=== PATIENT | female | born 1935 | race Caucasian/White ===

== ENCOUNTER 2021-08-01 07:14 | Inpatient (IN) ==
[2021-08-01 07:55] LABS: Basophils # 0.1 K/mcL (0.0-0.2); Basophils % 0.6 %; Eosinophils # 0.3 K/mcL (0.0-0.6); Hematocrit 42.1 % (35.3-44.9); Hemoglobin 13.1 g/dL (11.5-15.4); Immature Granulocytes % 0.3 % (0-4); Lymphocytes # 0.9 K/mcL (0.6-4.6); Lymphocytes % 9.9 %; Mean Corpuscular HGB Conc 31.1 g/dL (31.6-35.5); Mean Corpuscular Hemoglobin 27.5 pg (28.0-33.3); Mean Corpuscular Volume 88.3 fL (83.0-100.0); Monocytes # 1.1 K/mcL (0.0-1.3); Monocytes % 12.3 %; Neutrophils # 6.5 K/mcL (1.6-8.9); Platelet Count 198 K/mcL (140-400); Red Blood Count 4.77 M/mcL (3.82-4.97); Red Cell Distribution Width 14.7 % (11.5-14.5); Segmented Neutrophils % 73.9 %; White Blood Count 8.8 K/mcL (4.3-11.1)
[2021-08-01] MEDS ORDERED: carvediloL 25 MG TABLET PO SCH (08:00)
[2021-08-01 08:19] LABS: Alanine Aminotransferase 10 Units/L (7-52); Albumin 3.8 g/dL (3.5-5.7); Albumin/Globulin Ratio 1.4 (1.1-2.2); Alkaline Phosphatase 90 Units/L (34-104); Aspartate Amino Transferase 14 Units/L (13-39); BUN/Creatinine Ratio 19 (6-26); Bilirubin,Total 1.1 mg/dL (0.3-1.0); Blood Urea Nitrogen 14 mg/dL (8-23); Calcium 9.5 mg/dL (8.6-10.3); Carbon Dioxide 25 mEq/L (23-29); Chloride 104 mEq/L (98-107); Globulin 2.8 g/dL (2.4-3.5); Glucose 176 mg/dL (70-105); Osmolality,Calculated 287 (280-300); Potassium 4.3 mEq/L (3.5-5.1); Sodium 136 mEq/L (136-145); Total Protein 6.6 g/dL (6.4-8.9); Troponin I < 0.03 ng/mL (< 0.04); eGFR For African Americans > 60 (> 60); eGFR For Non-African Americans > 60 (> 60)
[2021-08-01 08:31] LABS: Influenza A PCR Negative (Negative); Influenza B PCR Negative (Negative); Resp. Syncytial Virus PCR Negative (Negative)
[2021-08-01] MEDS ORDERED: DilTIAZem CD (24hr) 120 MG CAP.ER.24H PO SCH (09:00)
[2021-08-01 09:45] LABS: SARS-CoV-2 by PCR (In House) Negative (Negative)
[2021-08-01] MEDS ORDERED: Furosemide 40 MG/4 ML VIAL IVP ONE (10:08)
[2021-08-01] MEDS ORDERED: Naloxone 0.4 MG/ML INJ IVP PRN (10:13)
[2021-08-01] MEDS ORDERED: *HR* OxyCODONE Immed Rel 5 MG TABLET PO PRN (10:23)
[2021-08-01] MEDS ORDERED: *HR* HYDROcodone/Acet 5/325 mg TABLET PO PRN (10:23)
[2021-08-01] MEDS ORDERED: Ondansetron 4 MG/2 ML VIAL IVP PRN (10:23)
[2021-08-01 10:28] LABS: INR 3.2; Prothrombin Time 35.6 Seconds (9.4-12.1)
[2021-08-01 10:31] LABS: Activated Partial Thrombo Time 47.4 Seconds (26.0-36.0)
[2021-08-01] MEDS ORDERED: D5% in Water 1,000 ML IVC PRN (10:49)
[2021-08-01] MEDS ORDERED: *HR* Dextrose 50 % in Water (Syg) 50 ML SYRINGE IVP PRN (10:49)
[2021-08-01] MEDS ORDERED: Dextrose 4 GM Chewable Tablets PO PRN ×2 (10:49)
[2021-08-01] MEDS ORDERED: Perflutren Lipid Microsphere 1.3 ML in 0.9 % Sodium Chloride 8.7 ML IVP PRN (10:50)
[2021-08-01] MEDS ORDERED: *HR* Metoprolol 5 MG/5 ML VIAL IVP SCH (12:00)
[2021-08-01] MEDS: Insulin LISPRO 300 UNITS/3 ML VIAL SUBQ SCH ×3 (12:33→20:00)
[2021-08-01] MEDS ORDERED: *HR* Metoprolol 5 MG/5 ML VIAL IVP PRN (14:08)
[2021-08-01] MEDS: DilTIAZem CD (24hr) 120 MG CAP.ER.24H PO SCH (15:21)
[2021-08-01] MEDS: carvediloL 25 MG TABLET PO SCH (17:22)
[2021-08-01] MEDS ORDERED: *HR* Warfarin 3 MG TABLET PO ONE (18:00)
[2021-08-01] MEDS ORDERED: Warfarin perPT PO PRN (18:00)
[2021-08-02 04:05] LABS: Basophils # 0.1 K/mcL (0.0-0.2); Basophils % 0.6 %; Eosinophils # 0.2 K/mcL (0.0-0.6); Eosinophils % 2.6 %; Hematocrit 41.4 % (35.3-44.9); Hemoglobin 13.1 g/dL (11.5-15.4); Immature Granulocytes % 0.2 % (0-4); Lymphocytes # 1.9 K/mcL (0.6-4.6); Lymphocytes % 20.5 %; Mean Corpuscular HGB Conc 31.6 g/dL (31.6-35.5); Mean Corpuscular Hemoglobin 27.6 pg (28.0-33.3); Mean Corpuscular Volume 87.2 fL (83.0-100.0); Mean Platelet Volume 11.5 fL (9.4-12.4); Monocytes # 1.4 K/mcL (0.0-1.3); Monocytes % 15.6 %; Neutrophils # 5.5 K/mcL (1.6-8.9); Platelet Count 188 K/mcL (140-400); Red Blood Count 4.75 M/mcL (3.82-4.97); Red Cell Distribution Width 14.6 % (11.5-14.5); Segmented Neutrophils % 60.5 %; White Blood Count 9.1 K/mcL (4.3-11.1)
[2021-08-02 04:11] LABS: INR 3.8; Prothrombin Time 42.1 Seconds (9.4-12.1)
[2021-08-02 04:17] LABS: Estimated Average Glucose 137 mg/dl; Hemoglobin A1C 6.4 %
[2021-08-02 04:35] LABS: Thyroid Stimulating Hormone 4.468 mcIU/mL (0.340-5.600)
[2021-08-02] MEDS: Insulin LISPRO 300 UNITS/3 ML VIAL SUBQ SCH ×4 (07:54→20:33)
[2021-08-02] MEDS: carvediloL 25 MG TABLET PO SCH (08:28)
[2021-08-02] MEDS: DilTIAZem CD (24hr) 120 MG CAP.ER.24H PO SCH (08:28)
[2021-08-02] MEDS ORDERED: Furosemide 40 MG/4 ML VIAL IVP ONE (09:32)
[2021-08-02] MEDS: DilTIAZem 50 MG/50 ML IV.SOLN IVC SCH ×2 (16:04→21:18)
[2021-08-03 02:18] LABS: INR 3.7; Prothrombin Time 41.2 Seconds (9.4-12.1)
[2021-08-03] MEDS: Insulin LISPRO 300 UNITS/3 ML VIAL SUBQ SCH ×4 (07:42→20:43)
[2021-08-03] MEDS ORDERED: DilTIAZem CD (24hr) 120 MG CAP.ER.24H PO SCH (09:00)
[2021-08-03 09:53] LABS: BUN/Creatinine Ratio 22 (6-26); Blood Urea Nitrogen 19 mg/dL (8-23); Calcium 9.8 mg/dL (8.6-10.3); Carbon Dioxide 24 mEq/L (23-29); Chloride 104 mEq/L (98-107); Glucose 113 mg/dL (70-105); Magnesium 1.8 mg/dL (1.6-2.6); Osmolality,Calculated 291 (280-300); Potassium 3.9 mEq/L (3.5-5.1); Sodium 139 mEq/L (136-145); eGFR For African Americans > 60 (> 60); eGFR For Non-African Americans > 60 (> 60)
[2021-08-03] MEDS ORDERED: carvediloL 25 MG TABLET PO SCH (11:30)
[2021-08-03] MEDS ORDERED: Perflutren Lipid Microsphere 1.3 ML in 0.9 % Sodium Chloride 8.7 ML IVP PRN (13:31)
[2021-08-03] MEDS: Furosemide 40 MG/4 ML VIAL IVP SCH (16:15)
[2021-08-04 03:13] LABS: Basophils # 0.1 K/mcL (0.0-0.2); Basophils % 0.5 %; Eosinophils # 0.1 K/mcL (0.0-0.6); Eosinophils % 0.7 %; Hematocrit 38.7 % (35.3-44.9); Hemoglobin 12.3 g/dL (11.5-15.4); Immature Granulocytes % 0.4 % (0-4); Lymphocytes # 1.9 K/mcL (0.6-4.6); Lymphocytes % 14.2 %; Mean Corpuscular HGB Conc 31.8 g/dL (31.6-35.5); Mean Corpuscular Hemoglobin 27.5 pg (28.0-33.3); Mean Corpuscular Volume 86.4 fL (83.0-100.0); Mean Platelet Volume 11.3 fL (9.4-12.4); Monocytes # 2.5 K/mcL (0.0-1.3); Monocytes % 18.7 %; Neutrophils # 8.8 K/mcL (1.6-8.9); Platelet Count 157 K/mcL (140-400); Red Blood Count 4.48 M/mcL (3.82-4.97); Red Cell Distribution Width 14.7 % (11.5-14.5); Segmented Neutrophils % 65.5 %; White Blood Count 13.4 K/mcL (4.3-11.1)
[2021-08-04 03:23] LABS: INR 2.2; Prothrombin Time 24.2 Seconds (9.4-12.1)
[2021-08-04 03:37] LABS: BUN/Creatinine Ratio 27 (6-26); Blood Urea Nitrogen 22 mg/dL (8-23); Calcium 9.2 mg/dL (8.6-10.3); Carbon Dioxide 26 mEq/L (23-29); Chloride 103 mEq/L (98-107); Glucose 161 mg/dL (70-105); Magnesium 1.6 mg/dL (1.6-2.6); Osmolality,Calculated 291 (280-300); Potassium 3.2 mEq/L (3.5-5.1); Sodium 137 mEq/L (136-145); eGFR For African Americans > 60 (> 60); eGFR For Non-African Americans > 60 (> 60)
[2021-08-04 03:43] LABS: Platelet Estimate Normal (Normal); Smudge Cells Present (Not Present)
[2021-08-04] MEDS ORDERED: Regadenoson 0.4 MG/5 ML SYRINGE IVP ONE (06:24)
[2021-08-04] MEDS: Acetaminophen 325 MG TABLET PO PRN (08:25)
[2021-08-04] MEDS: Furosemide 40 MG/4 ML VIAL IVP SCH ×2 (08:26→18:21)
[2021-08-04] MEDS: Insulin LISPRO 300 UNITS/3 ML VIAL SUBQ SCH ×4 (08:26→20:26)
[2021-08-04] MEDS ORDERED: *HR* Warfarin 7.5 MG TABLET PO ONE (18:00)
[2021-08-05 02:01] LABS: Prothrombin Time 22.4 Seconds (9.4-12.1)
[2021-08-05] MEDS: Insulin LISPRO 300 UNITS/3 ML VIAL SUBQ SCH ×4 (08:00→20:58)
[2021-08-05] MEDS: Furosemide 40 MG/4 ML VIAL IVP SCH ×2 (09:07→16:42)
[2021-08-05] MEDS: Gabapentin 100 MG CAPSULE PO SCH ×3 (11:37→20:58)
[2021-08-05] MEDS: Acetaminophen 325 MG TABLET PO PRN (16:42)
[2021-08-05] MEDS ORDERED: *HR* Warfarin 7.5 MG TABLET PO ONE (18:00)
[2021-08-06 01:39] LABS: Basophils # 0.1 K/mcL (0.0-0.2); Basophils % 0.4 %; Eosinophils # 0.2 K/mcL (0.0-0.6); Eosinophils % 1.5 %; Hematocrit 40.1 % (35.3-44.9); Hemoglobin 12.2 g/dL (11.5-15.4); Immature Granulocytes % 0.5 % (0-4); Lymphocytes # 2.2 K/mcL (0.6-4.6); Lymphocytes % 16.5 %; Mean Corpuscular HGB Conc 30.4 g/dL (31.6-35.5); Mean Corpuscular Hemoglobin 27.1 pg (28.0-33.3); Mean Corpuscular Volume 89.1 fL (83.0-100.0); Mean Platelet Volume 11.3 fL (9.4-12.4); Monocytes # 1.6 K/mcL (0.0-1.3); Neutrophils # 9.2 K/mcL (1.6-8.9); Platelet Count 192 K/mcL (140-400); Red Cell Distribution Width 14.7 % (11.5-14.5); Segmented Neutrophils % 69.1 %; White Blood Count 13.3 K/mcL (4.3-11.1)
[2021-08-06 01:48] LABS: INR 1.9; Prothrombin Time 21.6 Seconds (9.4-12.1)
[2021-08-06 02:02] LABS: Calcium 9.7 mg/dL (8.6-10.3); Potassium 3.9 mEq/L (3.5-5.1)
[2021-08-06] MEDS: Insulin LISPRO 300 UNITS/3 ML VIAL SUBQ SCH ×4 (08:32→21:04)
[2021-08-06] MEDS: Furosemide 40 MG/4 ML VIAL IVP SCH ×2 (08:32→17:17)
[2021-08-06] MEDS: Gabapentin 100 MG CAPSULE PO SCH ×3 (08:32→21:04)
[2021-08-06] MEDS ORDERED: *HR* Warfarin 4 MG TABLET PO ONE (18:00)
[2021-08-07 02:31] LABS: INR 2.1; Prothrombin Time 23.8 Seconds (9.4-12.1)
[2021-08-07] MEDS: Gabapentin 100 MG CAPSULE PO SCH ×3 (09:02→21:24)
[2021-08-07] MEDS: Furosemide 40 MG/4 ML VIAL IVP SCH (09:03)
[2021-08-07] MEDS: Insulin LISPRO 300 UNITS/3 ML VIAL SUBQ SCH ×5 (09:03→21:27)
[2021-08-07] MEDS ORDERED: Perflutren Lipid Microsphere 1.3 ML in 0.9 % Sodium Chloride 8.7 ML IVP PRN ×2 (11:12→13:56)
[2021-08-07 11:41] LABS: Calcium 9.8 mg/dL (8.6-10.3); Potassium 3.9 mEq/L (3.5-5.1)
[2021-08-07] MEDS: DilTIAZem CD (24hr) 180 MG CAP.ER.24H PO SCH (11:43)
[2021-08-07] MEDS ORDERED: *HR* Warfarin 7.5 MG TABLET PO ONE (18:00)
[2021-08-08 06:31] LABS: INR 1.9; Prothrombin Time 21.5 Seconds (9.4-12.1)
[2021-08-08] MEDS: DilTIAZem CD (24hr) 180 MG CAP.ER.24H PO SCH (08:13)
[2021-08-08] MEDS: Furosemide 40 MG TABLET PO SCH (08:14)
[2021-08-08] MEDS: Insulin LISPRO 300 UNITS/3 ML VIAL SUBQ SCH ×4 (08:15→20:00)
[2021-08-08] MEDS: Gabapentin 100 MG CAPSULE PO SCH ×3 (08:15→19:59)
[2021-08-08] MEDS ORDERED: *HR* Warfarin 7.5 MG TABLET PO ONE (18:00)
[2021-08-08] MEDS: Acetaminophen 325 MG TABLET PO PRN (19:59)
[2021-08-09 02:34] LABS: INR 2.3; Prothrombin Time 25.4 Seconds (9.4-12.1)
[2021-08-09] MEDS: Insulin LISPRO 300 UNITS/3 ML VIAL SUBQ SCH ×4 (08:04→21:29)
[2021-08-09] MEDS: DilTIAZem CD (24hr) 180 MG CAP.ER.24H PO SCH (08:05)
[2021-08-09] MEDS: Furosemide 40 MG TABLET PO SCH (08:05)
[2021-08-09] MEDS: Gabapentin 100 MG CAPSULE PO SCH ×3 (08:05→21:30)
[2021-08-09] MEDS ORDERED: *HR* Warfarin 4 MG TABLET PO ONE (18:00)
[2021-08-10 04:46] LABS: INR 2.2; Prothrombin Time 24.5 Seconds (9.4-12.1)
[2021-08-10 07:24] VITALS: TEMP 98.2
[2021-08-10] MEDS: Furosemide 40 MG TABLET PO SCH (08:11)
[2021-08-10] MEDS: Gabapentin 100 MG CAPSULE PO SCH ×2 (08:11→15:02)
[2021-08-10] MEDS: DilTIAZem CD (24hr) 180 MG CAP.ER.24H PO SCH (08:11)
[2021-08-10] MEDS: Insulin LISPRO 300 UNITS/3 ML VIAL SUBQ SCH ×3 (08:11→16:02)
[2021-08-10 11:24] VITALS: BP 136/82; PULSE 105; O2SAT 98
[2021-08-10] MEDS ORDERED: *HR* Warfarin 7.5 MG TABLET PO ONE (18:00)
== END 2021-08-10 18:22 | disposition home health service (06) | DRG 310 ==
LOC: SUATTDRO → 3BNU 07:14 → EMEROOARM 07:14 → SUATTDRO 10:33 → 3BNU 11:31 → SUATTDRO 08-03 12:40
PROVIDERS: ADMIT Pharmacist; ATTEND Internal Medicine